=== PATIENT | male | born 1990 | race Caucasian/White ===

== ENCOUNTER 2017-08-16 09:58 | Emergency (ER) | payer OTHER ==
[~2017-08-16] VITALS: Ht 182.9 cm; Wt 104.3 kg
[~2017-08-16 09:58] MED LIST: IBUPROFEN800 M1 PO; VICODIN 5-3001 EACH PO
[2017-08-16 10:05] VITALS: BP 138/90
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
[2017-08-16] MEDS ORDERED: CYCLOBENZAPRINE10 M1 PO (13:36)
[2017-08-16] MEDS ORDERED: MELOXICAM7.5 M1 PO (13:36)
== END 2017-08-16 13:50 ==
LOC: ERH 09:58
DX: S13.4XXA Sprain of ligaments of cervical spine, initial encounter (principal); S29.012A Strain of muscle and tendon of back wall of thorax, initial encounter; V86.56XA Driver of dirt bike or motor/cross bike injured in nontraffic accident, initial encounter
CPT/HCPCS: 72050; 72070

== ENCOUNTER 2017-08-18 06:51 | Emergency (ER) | payer OTHER ==
[~2017-08-18] VITALS: Ht 182.9 cm; Wt 104.3 kg
[~2017-08-18 06:51] MED LIST changes: +CYCLOBENZAPRINE10 M1 PO; +MELOXICAM7.5 M1 PO
[2017-08-18 07:09] VITALS: BP 123/66
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
== END 2017-08-18 07:43 ==
LOC: ERH 06:51
DX: S29.012A Strain of muscle and tendon of back wall of thorax, initial encounter (principal); V86.56XA Driver of dirt bike or motor/cross bike injured in nontraffic accident, initial encounter; Y92.9 Unspecified place or not applicable; Y93.9 Activity, unspecified